=== PATIENT | female | born 1975 | race Two or more races ===

== ENCOUNTER 2024-02-29 05:25 | Day surgery (SDC) | payer OTHER ==
[~2024-02-29 05:25] MED LIST: LOSARTAN-HCTZ1 EAC2; NAPROXEN500 MG PO
[2024-02-29] MEDS ORDERED: POVIDONE-IODINE 118 ML BOTT TOP ONE (08:15)
[2024-02-29] MEDS ORDERED: KETOROLAC TROMETHAMINE 30 MG VIAL IU STA (08:21)
== END 2024-02-29 12:45 | disposition home or self-care (01) ==
LOC: CIR.AMB 05:25
PROVIDERS: ATTEND Obstetrics & Gynecology
DX: D25.0 Submucous leiomyoma of uterus (principal); N85.00 Endometrial hyperplasia, unspecified; N93.9 Abnormal uterine and vaginal bleeding, unspecified; N92.4 Excessive bleeding in the premenopausal period; I10 Essential (primary) hypertension